=== PATIENT | female | born 1950 | race Two or more races ===

== ENCOUNTER 2017-03-15 13:56 | Emergency (ER) | payer MEDICARE, OTHER ==
[~2017-03-15] VITALS: Ht 172.7 cm; Wt 95.3 kg
[~2017-03-15 13:56] MED LIST: ASPIR 8181 MG ORAL; CLOPIDOGREL75 MG PO; DIPYRIDAMOLE75 MG PO; GEMFIBROZIL600 MG PO; IBUPROFEN600 MG ORAL; METOPROLOL SUCC50 MG PO; NORCO 5-325 TA1 EAC1 ORAL; NORCO 5-325 TA1 EACH ORAL; PRAVASTATIN SOD80 M1 PO
--- NOTE | 2017-03-15 14:21 | Emergency Room Report ---
History of Present Illness General Chief Complaint: Pain Source: Patient Present Illness HPI Patient presents with complaints of bilateral leg pain She points to bilateral upper thigh area Anterior region Points from the mid upper area to be knee also feels pain in the lower leg at times Denies any fall or trauma Patient takes different medications for hypertension including aspirin and metoprolol Denies any water pills Denies any chest pain or shortness of breath She associated some of the cramping and pain with dizziness Reports that she has similar episode about 2 years ago but it resolved by itself after ibuprofen Allergies: Coded Allergies: No Known Allergies (Unverified , 09/16/14) Patient History Past Medical History: see triage record Pertinent Family History: none Reviewed Nursing Documentation: PMH: Agreed, PSxH: Agreed Nursing Documentation-PMH Past Medical History: No History, Except For Hx Cardiac Problems: Yes - high cholesterol Hx Hypertension: Yes Hx Diabetes: Yes - Pre-diabete Hx Cerebrovascular Accident: Yes Review of Systems All Other Systems: negative except mentioned in HPI Physical Exam Vital Signs Date Time Temp Pulse Resp B/P Pulse Ox O2 Delivery O2 Flow Rate FiO2 03/15/17 14:04 98.1 57 14 146/73 98 Room Air Sp02 EP Interpretation: reviewed, normal General Appearance: well appearing, no apparent distress Head: normocephalic, atraumatic Eyes: bilateral eye EOMI, bilateral eye PERRL ENT: hearing grossly normal, normal pharynx, TMs + canals normal, uvula midline Neck: full range of motion, supple, no meningismus, no bony tend Respiratory: lungs clear, normal breath sounds, no rhonchi, no respiratory distress, no retraction, no accessory muscle use Cardiovascular #1: normal peripheral pulses, regular rate, rhythm, no edema, no gallop, no JVD, no murmur Gastrointestinal: normal bowel sounds, non tender, soft, no mass, no organomegaly, non-distended, no guarding, no hernia, no pulsatile mass, no rebound Genitourinary: no CVA tenderness Musculoskeletal: other - Patient is ambulatory, muscle strength is appropriate however on palpation of the dorsal and upper part of the inner femur area patient has reproducible discomfort, , Neurologic: oriented x3, responsive, body repairer III-XII nml as tested, motor strength/ tone normal, sensory intact Psychiatric: mood/affect normal Skin: normal color, no rash, warm/dry, palpation normal Lymphatic: normal inspection, no adenopathy Medical Decision Making Diagnostic Impression: Primary Impression: Myalgia Additional Impression: Rhabdomyolysis ER Course Given the patient's history examined the presentation Medical differentials were considered Total CK was also obtained It is elevated Patient shows signs of myalgia along with mild early rhabdomyolysis Is level does not appear to be significantly dangerous at this time and can be treated initially conservatively Patient will return with any changes Labs Test 03/15/17 12:30 White Blood Count 6.0 K/UL (4.8-10.8) Red Blood Count 4.98 M/UL (4.20-5.40) Hemoglobin 14.7 G/DL (12.0-16.0) Hematocrit 46.5 % (37.0-47.0) Mean Corpuscular Volume 93 FL (80-99) Mean Corpuscular Hemoglobin 29.4 PG (27.0-31.0) Mean Corpuscular Hemoglobin Concent 31.6 G/DL (32.0-36.0) Red Cell Distribution Width 13.3 % (11.6-14.8) Platelet Count 174 K/UL (150-450) Mean Platelet Volume 11.7 FL (6.5-10.1) Neutrophils (%) (Auto) 59.7 % (45.0-75.0) Lymphocytes (%) (Auto) 28.6 % (20.0-45.0) Monocytes (%) (Auto) 6.0 % (1.0-10.0) Eosinophils (%) (Auto) 4.2 % (0.0-3.0) Basophils (%) (Auto) 1.5 % (0.0-2.0) Sodium Level 142 mEQ/L (135-145) Potassium Level 3.8 mEQ/L (3.4-4.9) Chloride Level 102 mEQ/L (98-107) Carbon Dioxide Level 28 mEQ/L (20-30) Anion Gap 12 (5-15) Blood Urea Nitrogen 18 mg/dL (7-23) Creatinine 0.9 mg/dL (0.5-0.9) Estimat Glomerular Filtration Rate > 60 mL/min (>60) Glucose Level 113 mg/dL (74-106) Calcium Level 9.6 mg/dL (8.6-10.2) Total Creatine Kinase 545 U/L (26-140) Last Vital Signs Date Time Temp Pulse Resp B/P Pulse Ox O2 Delivery O2 Flow Rate FiO2 03/15/17 14:04 98.1 57 14 146/73 98 Room Air Status: improved Disposition: HOME, SELF-CARE Condition: Improved Scripts Acetaminophen (Tylenol) 325 Mg Tablet 650 MG ORAL Q6H Y for Prn Pain/Headache/Temp > 101, #20 TAB 0 Refills Prov: MOLLY SABA D.O. 03/15/17 Additional Instructions: Patient is provided with the discharge instructions notified to follow up with primary doctor in the next 2-3 days otherwise return to the er with any worsening symptoms. Please note that this report is being documented using [employer] technology. This can lead to erroneous entry secondary to incorrect interpretation by the dictating instrument. MOLLY SABA D.O. Mar 15, 2017 14:21
[2017-03-15 14:30] VITALS: BP 146/73
[2017-03-15] MEDS ORDERED: Ketorolac 60mg Inj IM ONE (14:30)
[2017-03-15 14:40] LABS: BASOPHILS % (AUTO) 1.5 % (0.0-2.0); EOSINOPHILS % (AUTO) 4.2 % (0.0-3.0); LYMPHOCYTES % (AUTO) 28.6 % (20.0-45.0); MEAN CORPUSCULAR HEMOGLOBIN 29.4 PG (27.0-31.0); MEAN CORPUSCULAR HGB CONC 31.6 G/DL (32.0-36.0); MEAN CORPUSCULAR VOLUME 93 FL (80-99); MEAN PLATELET VOLUME 11.7 FL (6.5-10.1); NEUTROPHILS % (AUTO) 59.7 % (45.0-75.0); PLATELET COUNT 174 K/UL (150-450); RED BLOOD COUNT 4.98 M/UL (4.20-5.40); RED CELL DISTRIBUTION WIDTH 13.3 % (11.6-14.8)
[2017-03-15 14:57] LABS: ANION GAP 12 (5-15); CALCIUM 9.6 mg/dL (8.6-10.2); CARBON DIOXIDE 28 mEQ/L (20-30); CHLORIDE 102 mEQ/L (98-107); CREATININE 0.9 mg/dL (0.5-0.9); GLOMERULAR FILTRATION RATE > 60 mL/min (>60); HEMOLYSIS 8; POTASSIUM 3.8 mEQ/L (3.4-4.9); SODIUM 142 mEQ/L (135-145)
[2017-03-15] MEDS ORDERED: TYLENOL325 MG ORAL (15:48)
[2017-03-15 15:52] VITALS: BP 138/70
[2017-03-15 15:53] VITALS: BP 146/73
== END 2017-03-15 15:56 | disposition home or self-care (01) ==
LOC: EMR 14:46
DX: M79.1 Myalgia (principal); M62.82 Rhabdomyolysis; I10 Essential (primary) hypertension; Z86.73 Personal history of transient ischemic attack (TIA), and cerebral infarction without residual deficits
CPT/HCPCS: 36415; 80048; 82550; 85025; 96372; 99283

== ENCOUNTER 2017-08-24 12:36 | Emergency (ER) | payer MEDICARE, OTHER ==
[~2017-08-24] VITALS: Ht 172.7 cm; Wt 86.2 kg
[~2017-08-24 12:36] MED LIST changes: +TYLENOL325 MG ORAL
--- NOTE | 2017-08-24 13:43 | Diagnostic Imaging Report ---
Indication: Pain right ankle Comparison: None Findings: 3 views of the right ankle obtained. Bones are osteopenic. There is no malalignment or fracture. Soft tissue swelling noted. Impression: Soft tissue swelling
[2017-08-24] MEDS ORDERED: TRAMADOL HCL50 MG ORAL (13:53)
[2017-08-24] MEDS ORDERED: IBUPROFEN600 MG ORAL (13:53)
[2017-08-24 14:07] VITALS: BP 151/53
[2017-08-24 14:30] VITALS: BP 151/53
--- NOTE | 2017-08-24 21:59 | Emergency Room Report ---
History of Present Illness General Chief Complaint: Pain Source: Patient (JENNIFER BLUM) Present Illness HPI The patient is a 66-year-old female presenting for right foot pain which began approximately one week prior for no known reason. She denies any known injury to the area. She noticed swelling and bruising as well. Pain is an 8/10 dull ache primarily to the ankle and heel and is worse with walking. She denies any numbness or tingling. She denies calf pain. She denies any other symptoms including shortness of breath, chest pain, nausea, vomiting, fever, chills (JENNIFER BLUM.AAlia) Allergies: Coded Allergies: No Known Allergies (Unverified , 09/16/14) Patient History Past Medical History: see triage record Pertinent Family History: none Reviewed Nursing Documentation: PMH: Agreed, PSxH: Agreed (JENNIFER BLUM) Nursing Documentation-PMH Hx Cardiac Problems: Yes - high cholesterol Hx Hypertension: Yes Hx Diabetes: Yes - Pre-diabete Hx Cerebrovascular Accident: Yes (JENNIFER BLUM P.AAlia) Review of Systems All Other Systems: negative except mentioned in HPI (JENNIFER BLUM P.AAlia) Physical Exam Vital Signs Date Time Temp Pulse Resp B/P (MAP) Pulse Ox O2 Delivery O2 Flow Rate FiO2 08/24/17 13:02 97.9 56 20 150/66 99 Room Air Sp02 EP Interpretation: reviewed, normal General Appearance: no apparent distress, alert, GCS 15, non-toxic Head: normocephalic, atraumatic Eyes: bilateral eye normal inspection, bilateral eye PERRL Respiratory: chest non-tender, lungs clear, normal breath sounds, speaking full sentences Cardiovascular #1: regular rate, rhythm, no edema Musculoskeletal: normal range of motion, no calf tenderness, swelling - R ankle , tender - TTP over the R medial ankle and calcaneus Neurologic: alert, oriented x3, responsive, motor strength/tone normal, sensory intact, speech normal Psychiatric: judgement/insight normal, memory normal, mood/affect normal, no suicidal/homicidal ideation Skin: other - Ecchymosis distal to the R medial malleolus Lymphatic: no adenopathy (JENNIFER BLUM) Procedures Splinting Splinting : Consent: Verbal Location: L leg Hand-Made Type: plaster Splint: poserior short Pre-Proc Neuro Vasc Exam: normal Post-Proc Neuro Vasc Exam: normal Patient Tolerated: Well Complications: None (JENNIFER BLUM) Medical Decision Making PA Attestation Dr. Stiles is my supervising physician. Patient management was discussed with my supervising physician (JENNIFER BLUM) Medicare Attestation The history of Alida Murillo has been reviewed and management options for her have been examined and discussed by Samir Stiles. I have personally examined and interviewed the patient. (SAMIR STILES M.D.) Diagnostic Impression: Primary Impression: Foot pain Qualified Codes: M79.671 - Pain in right foot ER Course The patient is a 66-year-old female presenting for right foot pain Ddx considered include but not limited to sprain/strain, fracture, contusion, DVT, among others PE: no tachycardia. afebrile. There is tenderness to palpation, edema, and ecchymosis to the right ankle. Primarily to the medial malleolus. No tender to palpation to the calf. Lungs CTA Bilat RRR Xray shows no fracture Right leg posterior short leg splint is placed and the patient is provided crutches She be discharged with pain medication and needs to follow up with her primary doctor. ER precautions are given (JENNIFER BLUM) Other X-Ray Diagnostic Results Other X-Ray Diagnostic Results : X-Ray ordered: R ankle # of Views/Limited Vs Complete: 3 View Indication: Pain EP Interpretation: Yes Interpretation: no dislocation, no fractures, other - + STS Impression: Other - swelling & degen changes Electronically Signed by: GOPI Griffith Scribe Text I have reviewed the xray with my supervising physician and interpretation is that there are no fractures, dislocations. There appears to be soft tissue swelling (JENNIFER BLUM PGissel) Last Vital Signs Date Time Temp Pulse Resp B/P (MAP) Pulse Ox O2 Delivery O2 Flow Rate FiO2 08/24/17 14:30 87 19 151/53 100 Room Air 08/24/17 14:07 98.6 Status: improved (TERZIAN,JENNIFER P.A.) Disposition: HOME, SELF-CARE Condition: Improved Scripts Tramadol Hcl* (ULTRAM*) 50 Mg Tablet 50 MG ORAL Q6H Y for For Pain, #10 TAB 0 Refills Prov: JENNIFER BLUM 08/24/17 Ibuprofen* (MOTRIN*) 600 Mg Tablet 600 MG ORAL Q8H Y for For Pain, #30 TAB 0 Refills Prov: JENNIFER BLUM 08/24/17 [facility]REFERR[facility] (PCP) Patient Instructions: Foot Sprain, RICE for Routine Care of Injuries Additional Instructions: I discussed my findings with the patient. All questions and concerns have been answered. Treatment and medication compliance have been addressed. I advised the patient that they need to follow up with PMD in 3-5 days. Return to ED if pain remains or worsens, numbness or tingling occurs, new rash is noticed, fever is noticed, or if needed for any reason. Patient verbalized understanding of discharge instructions. JENNIFER BLUM Aug 24, 2017 21:59 SAMIR STILES M.D. Aug 26, 2017 14:03
== END 2017-08-24 14:30 | disposition home or self-care (01) ==
LOC: EMR 13:10
DX: M79.671 Pain in right foot (principal); I10 Essential (primary) hypertension; M85.861 Other specified disorders of bone density and structure, right lower leg; Z86.73 Personal history of transient ischemic attack (TIA), and cerebral infarction without residual deficits
CPT/HCPCS: 99284